=== PATIENT | female | born 1955 | race Caucasian/White ===

== ENCOUNTER 2019-05-22 21:33 | Observation (INO) | payer BC ==
[2019-05-23] MEDS ORDERED: HumaLOG 300 UNITS/3 ML VIAL SC PRN ×2 (00:02)
[2019-05-23] MEDS ORDERED: Dextrose 5% in Water 1,000 ML IV PRN (00:02)
[2019-05-23] MEDS ORDERED: Dextrose 50% Abboject 50 ML SYRINGE SLOW IVP PRN (00:02)
[2019-05-23 01:06] VITALS: BMI 32.5
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
[2019-05-23 05:01] LABS: Cardiac Risk 2.4 (Less than 4.5)
--- NOTE | 2019-05-23 08:20 | ULT ---
CAROTID ULTRASOUND WITH CORDERO SCALE AND DOPPLER DUPLEX COLOR FLOW IMAGING SPECTRAL ANALYSIS PERFORMED: CLINICAL INDICATION: CVA. FINDINGS: There is mild atherosclerotic calcification of the carotid arteries. PEAK SYSTOLIC VELOCITY (CM/S): Right CCA 82 Left CCA 81 Right ICA 69 Left ICA 74 There is antegrade flow within the visualized bilateral vertebral arteries. IMPRESSION: 1. No hemodynamically significant stenosis of the right internal carotid artery. 2. No hemodynamically significant stenosis of the left internal carotid artery. POS: [facility]
[2019-05-23] MEDS ORDERED: Aspirin 81 mg Enteric Coated Tablet PO SCH (09:00)
[2019-05-23] MEDS ORDERED: Citalopram 10 MG TAB PO SCH (09:00)
[2019-05-23] MEDS ORDERED: Gabapentin 300 MG CAP PO SCH (09:00)
[2019-05-23] MEDS ORDERED: Dicyclomine 10 MG CAP PO SCH (09:00)
[2019-05-23] MEDS ORDERED: Non-Formulary Item 1 EACH (Canagliflozin [Invokana] 100 MG) PO SCH (09:00)
[2019-05-23] MEDS ORDERED: busPIRone HCl 10 MG TAB PO SCH ×2 (12:00→21:00)
[2019-05-23] MEDS ORDERED: Iopamidol 370 76% 100 ML VIAL ONE (12:48)
--- NOTE | 2019-05-23 15:12 | CT ---
CT ANGIOGRAM OF THE NECK: HISTORY: Evaluate for CVA. COMPARISON: None. CORRELATION: Carotid ultrasound 05/23/2019 at 7:15 AM. TECHNIQUE: CT angiogram of the neck is performed in the axial plane. Three-dimensional reformatted images are hamm bmitted for interpretation. FINDINGS: Bilateral globes are grossly unremarkable. Adequate aeration of the paranasal sinuses and mastoid air cells. Aerodigestive tract appears to be patent. No mucosal abnormality. Limited evaluation the oral cavity due to dental amalgam artifact. Midline fatty raphae of the tongue is preserved. Epiglottis has a normal caliber. Supraglottic, glottic and subglottic larynx are unremarkable. No prevertebral soft tissue swelling. Cervical spine vertebral body height is maintained. There is no fracture. Varying degrees of central canal stenosis and neural foraminal narrowing on the basis of degenerative change. Limited evaluation due to technique. Paraspinal muscles and sternocleidomastoid muscles have symmetric attenuation and enhancement. Unremarkable thyroid gland and parotid glands. Fatty replacement of both parotid glands is symmetric. Upper mediastinum is unremarkable. Chronic changes in the visualized lung apices. CT ANGIOGRAM: Visualized aortic arch has a normal caliber. Right carotid: The right carotid artery origin, innominate artery, common carotid artery, carotid bif urcation and internal carotid artery have appropriate enhancement and luminal diameter. Left carotid: Left common carotid artery origin, common carotid artery, carotid bifurcation and inter nal cardioverter appropriate enhancement and luminal diameter. Bilateral cervical vertebral arteries are patent throughout their course in the neck. Bilateral subcl kari arteries are unremarkable. IMPRESSION: 1. No evidence of significant stenosis of the cervical carotid arteries based upon NASCET criteria. M inimal calcified plaque in the right carotid bifurcation. 2. Unremarkable bilateral cervical vertebral arteries. Vertebral arteries are essentially codominant. Transcribed Date/Time: 05/23/2019 3:22 PM
--- NOTE | 2019-05-23 15:39 | CT ---
INDICATION: Stroke COMPARISON: None FINDINGS: CTA OF THE HEAD WITH AND WITHOUT CONTRAST: NONCONTRAST CT OF BRAIN: Hemorrhage: None [place]hemia/Infarction: None. Midline Shift: None. Hydrocephalus: None. Skull and Extracranial Soft tissues: Normal. Postcontrast head CT: No pathologic enhancement of the brain parenchyma CTA OF THE BRAIN: Right ICA: Appropriate enhancement and luminal diameter Right MCA: Appropriate enhancement and luminal diameter Right MELLY: Appropriate enhancement and luminal diameter Left ICA: Appropriate enhancement and luminal diameter Left MCA: Appropriate enhancement and luminal diameter Left MELLY: Appropriate enhancement and luminal diameter Vertebral arteries: Appropriate enhancement and luminal diameter Basilar Artery: Appropriate enhancement and luminal diameter rubber roller grinder: Right CCA has a origin. Left P1 segment is unremarkable. Appropriate enhancement and lum inal diameter Incidentals: None. IMPRESSION: 1. No hemodynamically significant stenosis, occlusion or aneurysmal formation.
[2019-05-23 16:03] VITALS: BP 129/77; TEMP 97.7
[2019-05-23] MEDS ORDERED: metFORMIN 500 MG TAB PO SCH (17:00)
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
--- NOTE | 2019-05-23 19:05 | DIS ---
DATE OF ADMISSION: 05/22/2019 DATE OF DISCHARGE: 05/23/2019 DISCHARGE DISPOSITION: Home. FOLLOWUP: 1. Follow up with primary care physician at [place] in 1 week. 2. Follow up with Neurology, Dr. Mcgraw in 1 week. The patient was seen and examined on the day of discharge. Denies any new complaints. No new focal deficit. BRIEF HOSPITAL COURSE: The patient is a 63-year-old female with diabetes mellitus type 2, hypertension, and hyperlipidemia, presented to the hospital with dizziness along with slurriness of speech. She was admitted to the Stroke Unit with a diagnosis of acute CVA. MRI of the brain could not be done due to spinal stimulator. Echocardiogram showed left ventricular ejection fraction of 55% to 60% with diastolic dysfunction, mild mitral regurgitation, and mild tricuspid regurgitation. CT angiogram of the head and neck was negative for hemodynamically significant stenosis or aneurysm. Carotid Doppler was negative as well. Telemetry monitoring did not show significant arrhythmias. She was evaluated by Neurology and was advised to start 81 mg of aspirin. She was also advised to hold metformin for 48 hours due to contrast exposure. All other home medications were left unchanged. FINAL DIAGNOSES: 1. Suspected transient ischemic attack. 2. Hypertension. 3. Diabetes mellitus, type 2. 4. Hyperlipidemia. Fasting lipid profile showed LDL 58, cholesterol 125, triglycerides 74 with an HDL of 52. 5. Nonalcoholic steatohepatitis. LFTs on this admission showed total bilirubin 2.9 with AST 208, ALT 141 with alkaline phosphatase 152. 6. Type 2 myocardial infarction. Maximum troponin this admission was 0.029. 7. Chronic kidney disease, stage 2. 8. Obesity with a BMI of 32. 9. History of transient ischemic attack in the past. 10. Irritable bowel syndrome. 11. Obstructive sleep apnea, status post uvulopalatopharyngoplasty. 12. Degenerative joint disease. PLAN: Plan of care was discussed with the patient in detail. She stated understanding. Job ID: [id number]
[2019-05-23] MEDS ORDERED: Diazepam 5 MG TAB PO SCH (21:00)
[2019-05-23] MEDS ORDERED: Atorvastatin Calcium 40 MG TAB PO SCH (21:00)
[2019-05-23] MEDS ORDERED: Losartan 25 MG TAB PO SCH (21:00)
[2019-05-24] MEDS ORDERED: Alogliptin 25 MG TAB PO SCH (09:00)
== END 2019-05-23 17:05 | disposition home or self-care (01) ==
LOC: ERS 21:33 → 2SE 22:19
PROVIDERS: ADMIT Internal Medicine; ATTEND Internal Medicine
DX: R42 Dizziness and giddiness (principal); R47.81 Slurred speech; I12.9 Hypertensive chronic kidney disease with stage 1 through stage 4 chronic kidney disease, or unspecified chronic kidney disease; E11.22 Type 2 diabetes mellitus with diabetic chronic kidney disease; N18.2 Chronic kidney disease, stage 2 (mild); E66.9 Obesity, unspecified; K75.81 Nonalcoholic steatohepatitis (NASH); E78.5 Hyperlipidemia, unspecified; G47.33 Obstructive sleep apnea (adult) (pediatric); K58.9 Irritable bowel syndrome, unspecified; F41.8 Other specified anxiety disorders; F32.9 Major depressive disorder, single episode, unspecified; Z68.32 Body mass index [BMI] 32.0-32.9, adult; Z79.84 Long term (current) use of oral hypoglycemic drugs; Z86.73 Personal history of transient ischemic attack (TIA), and cerebral infarction without residual deficits; Z88.0 Allergy status to penicillin; Z88.2 Allergy status to sulfonamides; Z96.651 Presence of right artificial knee joint
CPT/HCPCS: 36415; 36416; 70496; 70498; 80061; 90471; 90732; 93306; 93880; G0009; G0378; Q9967